=== PATIENT | female | born 1990 | race Caucasian/White ===

== ENCOUNTER 2024-05-11 11:41 | Emergency (ER) | payer MEDICAID, SELFPAY ==
[2024-05-11 11:42] VITALS: BP 144/98; PULSE 96; RESP 19; TEMP 36.7; O2SAT 96; BMI 30.2
[2024-05-11 11:45] VITALS: PULSE 98; RESP 18; O2SAT 99
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
--- NOTE | 2024-05-11 12:14 | PC.NURSE ---
pt requesting to leave AMA because she needs to hot die picker prescription of methadone. provider made aware. AMA form signed.
== END 2024-05-11 12:21 | disposition left against medical advice (07) ==
PROVIDERS: Emergency Provider Emergency Medicine
DX: S01.01XA Laceration without foreign body of scalp, initial encounter (principal); F11.20 Opioid dependence, uncomplicated; Z87.891 Personal history of nicotine dependence; Z53.29 Procedure and treatment not carried out because of patient's decision for other reasons; Y00.XXXA Assault by blunt object, initial encounter
CPT/HCPCS: 99281

== ENCOUNTER 2024-05-11 16:32 | Emergency (ER) | payer MEDICAID, SELFPAY ==
[2024-05-11 16:35] VITALS: BMI 28.7
[2024-05-11 16:54] VITALS: BP 133/84; PULSE 75; RESP 16; TEMP 36.7; O2SAT 95; BMI 30.8
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
[2024-05-11 19:21] VITALS: BP 107/83; PULSE 71; RESP 18; TEMP 36.7; O2SAT 99
== END 2024-05-11 19:23 | disposition home or self-care (01) ==
PROVIDERS: Emergency Provider Emergency Medicine; PCP Family Medicine
DX: S01.01XA Laceration without foreign body of scalp, initial encounter (principal); M54.2 Cervicalgia; Z87.891 Personal history of nicotine dependence; Y00.XXXA Assault by blunt object, initial encounter
CPT/HCPCS: 12002; 70450; 72125; 99284

== ENCOUNTER 2024-06-14 07:13 | Emergency (ER) | payer MEDICAID, SELFPAY ==
[2024-06-14 07:14] VITALS: BMI 29.8
[2024-06-14 07:31] VITALS: BP 155/100; PULSE 82; RESP 18; TEMP 36.7; O2SAT 97
[2024-06-14 07:54] LABS: Collection Type, Urine Clean Catch; RBC,Urine 0 /hpf (0-3)
[2024-06-14 08:20] LABS: HCG Qualitative,Urine Positive
--- NOTE | 2024-06-14 08:25 | EDNOTE_ITS ---
<Statement entered by Sachi Pena MD - 06/14/24 17:54> As co-signing physician, I was present and available for consult prn. I concur with the plan and care as documented by the midlevel provider. ED Abdominal Pain RME/HPI General Chief Complaint: Abdominal Pain Stated complaint: LOWER ABD CRAMPING, MISSED PERIOD X2MO Time seen by provider: 06/14/24 07:20 Arrival date/time: 06/14/24 07:13 34-year-old female presents emergency department today stating that she missed her period 2 months ago patient reports pelvic cramping. Patient with symptoms of for the last couple of weeks Limitations: no limitations Related Data Previous Rx's ?Medication ?Instructions ?Recorded ibuprofen 600 mg tablet 600 mg PO Q8H #14 tabs 12/23 etodolac 400 mg tablet 400 mg PO BID PRN pain #30 t abs 02/10/21 sulfamethoxazole 800 1 tab PO BID #14 tabs mg-trimethoprim 160 mg tablet (Bactrim DS) Allergies Allergy/AdvReac Type Severity Reaction Status Date / Time Penicillins Allergy Unknown Verified 06/14/24 07:16 tramadol Allergy Unknown Verified 06/14/24 07:16 Review of Systems Review of Systems Systems Reviewed: All systems reviewed, normal except as documented Constitutional Constitutional: Reports system reviewed and no additional complaints, except as documented, Denies fever(s) and Denies headache(s) Eyes Eyes: Reports system reviewed and no additional complaints, except as documented and Denies blurry vision ENT Ears, Nose, Mouth, and Throat: Reports system reviewed and no additional complaints, except as documented, Denies headache(s), Denies nasal congestion and Denies nasal discharge Cardiovascular Cardiovascular: Reports system reviewed and no additional complaints, except as documented, Denies chest pain and Denies dyspnea Respiratory Respiratory: Reports system reviewed and no additional complaints, except as documented, Denies chest congestion, Denies cough and Denies dyspnea Gastrointestinal Gastrointestinal: Reports system reviewed and no additional complaints, except as documented and Denies abdominal pain Genitourinary Genitourinary: Reports system reviewed and no additional complaints, except as documented, Denies abnormal vaginal bleeding, Denies flank pain and Reports pelvic pain Integumentary/Breasts Skin/Breast: Reports system reviewed and no additional complaints, except as documented and Denies rash Neurologic Neurologic: Reports system reviewed and no additional complaints, except as documented, Reports as per HPI and Denies headache(s) Past Medical History Past Medical History CARDIAC: Negative Congestive Heart Failure RESPIRATORY: Negative Chronic Obstructive Pulmonary Disease (COPD) GASTROINTESTINAL: Positive Hepatitis GENITOURINARY: Negative Renal Disease ENDOCRINE: Negative Diabetes Mellitus Type 1 or Diabetes Mellitus Type 2 Social History SMOKING STATUS: Current every day smoker ED Exam General Limitations: Present no limitations General appearance: Present alert and in no apparent distress Head Head exam: Present atraumatic, normocephalic and normal inspection Eye Eye exam: Present normal appearance, PERRL and EOMI; Absent conjunctival injection ENT ENT exam: Present normal exam, normal oropharynx and mucous membranes moist Neck Neck exam: Present normal inspection, full ROM and trachea midline Chest Chest inspection: Present normal inspection and symmetric chest wall rise Respiratory Respiratory exam: Present normal lung sounds bilaterally; Absent respiratory distress Cardiovascular Cardiovascular exam: Present regular rate, normal rhythm and normal heart sounds Abdominal Exam Abdominal exam: Present soft and normal bowel sounds; Absent distention, tenderness, guarding, rebound, rigidity, Sena's sign or tenderness at McBurney's Point Abdominal tenderness: Absent RUQ or RLQ Extremities Exam Extremities exam: Present normal inspection and full ROM Back Exam Back exam: Present normal inspection and full ROM Neurological Exam Neurological exam: Present alert, oriented X3 and CN II-XII intact Psychiatric Psychiatric exam: Present normal affect and normal mood Skin Skin exam: Present warm, dry, intact and normal color Course Quality Measures none Orders Category Date Time Status US pelvic complete Stat Exams 06/14/24 07:29 Stop Req Drug Screen,Urine Stat Lab 06/14/24 07:42 Completed HCG Qualitative,Urine Stat Lab 06/14/24 07:42 Results UA, C/S IF [Urinalysis, C/S if Indicated] Stat Lab 06/14/24 07:42 Results Vital Signs Vital signs: Vital Signs Temperature 98.1 F 06/14/24 07:31 Pulse Rate 82 06/14/24 07:31 Respiratory Rate 18 06/14/24 07:31 Blood Pressure 155/100 H 06/14/24 07:31 Pulse Oximetry (%) 97 06/14/24 07:31 Oxygen Delivery Method Room Air 06/14/24 07:31 O2 saturation 97% room air within the limits Abdominal Pain MDM MDM Narrative MDM Narrative:: 34-year-old female presents emergency department today stating that she missed her period 2 months ago patient reports pelvic cramping. Patient with symptoms of for the last couple of weeks On exam patient well-appearing patient is not appear ill or toxic in no acute distress Initially lab work as well as ultrasound ordered patient declined lab work as well as ultrasound she reports she just wants a test test did come back positive I did offer to do the lab work and ultrasound once again patient declined states she will follow-up with her primary care doctor As patient is no active bleeding or pain patient be discharged home to follow-up with PCP for worsening symptoms return immediately Patient data External records reviewed:: [facility] previous records Clinical information provided by:: patient Social determinants that could affect healthcare access:: housing Patient has the following chronic illnesses:: N/A How is presenting disease/condition affected by chronic disease/condition?: no chronic disease Evaluation data The following diagnostics were reviewed and interpreted by me:: lab results Lab and/or radiology exams considered but not ordered:: Lab obtain Interpretation Summary: Reviewed by me Medications / Prescriptions Medications or Prescriptions considered but not ordered:: Given no meds Medication administrations:: No meds Consultations Consultation(s) initiated? (list below): No Diagnosis Differential diagnosis abdominal pain: calculus of kidney and other (Positive ) Most likely diagnosis given after review of the tests above:: Positive Admission Indicated Admission indicated?: not indicated Admission Request Was there a request for admission?: No Disposition Plan Disposition Plan: Discharge Discharge Attestation Discharge Attestation: The patient and all family members were given an opportunity to ask questions and understood the discharge instructions. Discharge instructions specifically effects, indications for sooner follow up or return to the emergency department, and the expected course of current diagnosis. Patient condition: Stable Discharge Plan Plan Patient Disposition: HOME (Self Care) Disposition Comment: Stable Prescriptions/Referrals Prescriptions/Med Rec: No Action ibuprofen 600 mg tablet 600 mg PO Q8H Qty: 14 0RF etodolac 400 mg tablet 400 mg PO BID PRN (Reason: pain) Qty: 30 0RF sulfamethoxazole-trimethoprim [Bactrim DS] 800-160 mg tablet 1 tab PO BID Qty: 14 0RF Referrals: William Apple MD [Primary Care Provider] - In 1 week Problem List Clinical Impression: Positive test Patient/Caregiver Discharge Instructions Additional Instructions: Today you tested positive please follow-up with PCP for further evaluation and treatment Print Language: Kyrgyz Stand Alone Forms: Ruthie Award Info., Patient Portal Info Letter PA/REGIONAL SALES ASSOCIATE Supervising Physician PA/REGIONAL SALES ASSOCIATE Supervising Physician: Dr. pena
[2024-06-14 08:29] LABS: Amphetamine/Methamp Scrn,U Negative (Negative); Barbiturate Screen,Urine Negative (Negative); Benzodiazepines Screen,Urine Negative (Negative); Benzoylecgonine Screen, Ur Negative (Negative); Fentanyl Screen,Urine Negative (Negative); Opiate Screen,Urine Negative (Negative); THC Screen,Urine Negative (Negative)
[2024-06-14 08:35] LABS: Amorphous Crystals,Urine Present (Absent); Bilirubin,Urine Negative (Negative); Blood,Urine Negative (Negative); Color,Urine Yellow (Lt Yel-Yel); Culture Indicated,Urine Not Indicated; Glucose, Urine Negative (Negative); Ketones,Urine Negative (Negative); Leukocyte Esterase,Urine Negative (Negative); Nitrite,Urine Negative (Negative); PH,Urine 7.5 (5.0-7.0); Protein,Urine Negative (Neg - Trace); Specific Gravity,Urine 1.018 (1.001-1.035); Squamous Epithelial Cell,Urine 9 /hpf (0-5); Urobilinogen,Urine Negative mg/dL (0.0-1.0); WBC,Urine 1 /hpf (0-5)
[2024-06-14 08:39] LABS: Clarity,Urine Turbid (Clear/Hazy)
== END 2024-06-14 08:38 | disposition home or self-care (01) ==
PROVIDERS: Nurse Practitioner Primary Care; Emergency Provider Emergency Medicine; PCP Family Medicine
DX: Z32.01 Encounter for pregnancy test, result positive (principal)
CPT/HCPCS: 80053; 80307; 81001; 81025; 83690; 85025; 99283

== ENCOUNTER 2024-08-13 09:43 | Emergency (ER) | payer MEDICAID, SELFPAY ==
[2024-08-13 09:44] VITALS: BMI 29.8
[2024-08-13 09:58] VITALS: BP 123/83; PULSE 76; RESP 16; TEMP 36.8; O2SAT 96
--- NOTE | 2024-08-13 10:05 | PD.EDUPEX ---
Upper Extremity Injury RME/HPI General Chief Complaint: Extremity Injury, Upper Stated Complaint: RIGHT UNDERARM BLISTER, PAINFUL Time Seen by Provider: 08/13/24 09:46 Arrival date/time: 08/13/24 09:43 34-year-old female presents to the emergency department today for complaints of right underarm blister patient reports painful. Limitations: no limitations Related Data Previous Rx's ?Medication ?Instructions ?Recorded ibuprofen 600 mg tablet 600 mg PO Q8H #14 tabs 12/23/18 etodolac 400 mg tablet 400 mg PO BID PRN pain #30 tabs 02/10/21 sulfamethoxazole 800 1 tab PO BID #14 tabs 07/15/22 mg-trimethoprim 160 mg tablet (Bactrim DS) clindamycin HCl 300 mg capsule 300 mg PO TID 7 days #21 caps 08/13/24 ibuprofen 800 mg tablet 800 mg PO TID PRN pain #30 tabs 08/13/24 Allergies Allergy/AdvReac Type Severity Reaction Status Date / Time Penicillins Allergy Unknown Verified 08/13/24 09:46 tramadol Allergy Unknown Verified 08/13/24 09:46 Review of Systems Review of Systems Systems Reviewed: All systems reviewed, normal except as documented Constitutional Constitutional: Reports system reviewed and no additional complaints, except as documented, Denies fever(s) and Denies headache(s) Eyes Eyes: Reports system reviewed and no additional complaints, except as documented and Denies blurry vision ENT Ears, Nose, Mouth, and Throat: Reports system reviewed and no additional complaints, except as documented, Denies headache(s), Denies nasal congestion and Denies nasal discharge Cardiovascular Cardiovascular: Reports system reviewed and no additional complaints, except as documented, Denies chest pain and Denies dyspnea Respiratory Respiratory: Reports system reviewed and no additional complaints, except as documented, Denies chest congestion, Denies cough and Denies dyspnea Gastrointestinal Gastrointestinal: Reports system reviewed and no additional complaints, except as documented and Denies abdominal pain Integumentary/Breasts Skin/Breast: Reports system reviewed and no additional complaints, except as documented, Denies rash and Reports other (Early abscess right axilla) Neurologic Neurologic: Reports system reviewed and no additional complaints, except as documented, Reports as per HPI and Denies headache(s) Past Medical History Past Medical History CARDIAC: Negative Congestive Heart Failure RESPIRATORY: Negative Chronic Obstructive Pulmonary Disease (COPD) GASTROINTESTINAL: Positive Hepatitis GENITOURINARY: Negative Renal Disease ENDOCRINE: Negative Diabetes Mellitus Type 1 or Diabetes Mellitus Type 2 Social History SMOKING STATUS: Current every day smoker ED Exam General Limitations: Present no limitations General appearance: Present alert and in no apparent distress Head Head exam: Present atraumatic Eye Eye exam: Present normal appearance, PERRL and EOMI ENT ENT exam: Present normal exam, normal oropharynx and mucous membranes moist Neck Neck exam: Present normal inspection, full ROM and trachea midline Chest Chest inspection: Present normal inspection and symmetric chest wall rise Respiratory Respiratory exam: Present normal lung sounds bilaterally Cardiovascular Cardiovascular exam: Present regular rate, normal rhythm and normal heart sounds Abdominal Exam Abdominal exam: Present soft and normal bowel sounds Extremities Exam Extremities exam: Present normal inspection and full ROM Back Exam Back exam: Present normal inspection and full ROM Neurological Exam Neurological exam: Present alert, oriented X3, CN II-XII intact, normal gait and reflexes normal; Absent motor sensory deficit Psychiatric Psychiatric exam: Present normal affect and normal mood Skin Skin exam: Present warm, dry and other (Abscess right axilla) Course Quality Measures none Orders Category Date Time Status Clindamycin Vial [Cleocin vial] Med 08/13/24 10:02 Discontinued 600 mg IM X1 ONE Ketorolac Inj [Toradol Inj] Med 08/13/24 10:02 Discontinued 30 mg IM X1 ONE Vital Signs Vital signs: Vital Signs Temperature 98.3 F 08/13/24 09:58 Pulse Rate 76 08/13/24 09:58 Respiratory Rate 16 08/13/24 09:58 Blood Pressure 123/83 08/13/24 09:58 Pulse Oximetry (%) 96 08/13/24 09:58 Oxygen Delivery Method Room Air 08/13/24 09:58 O2 saturation 96% room air within normal limits Extremity Injury MDM Narrative MDM Narrative:: 34-year-old female presents to the emergency department today for complaints of right underarm blister patient reports painful. On exam patient well-appearing patient does not appear toxic in no acute distress Patient reports no fever nausea vomiting On exam patient has what appears to be early abscess of the right axilla patient mature with antibiotics at this time I do not feel a discrete pocket to drain. Explained to the patient she should return in 2 days for reevaluation and possible I&D patient states understanding Patient data External records reviewed:: [facility] previous records Clinical information provided by:: patient Social determinants that could affect healthcare access:: none Patient has the following chronic illnesses:: None How is presenting disease/condition affected by chronic disease/condition?: no chronic disease Evaluation data The following diagnostics were reviewed and interpreted by me:: other (specify) (N/A) Lab and/or radiology exams considered but not ordered:: Considered not ordered Interpretation Summary: na Medications / Prescriptions Medications or Prescriptions considered but not ordered:: given Medication administrations:: Medication Administration History Discontinued Medications Clindamycin Phosphate (Clindamycin Phos Inj 150 Mg/Ml Vial 6 Ml) 600 mg IM X1 ONE Stop: 08/13/24 10:03 Last Admin: 08/13/24 10:17 Dose: 600 mg Documented By: OA Ketorolac Tromethamine (Ketorolac Inj 30 Mg/Ml Vial) 30 mg IM X1 ONE Stop: 08/13/24 10:03 Last Admin: 08/13/24 10:17 Dose: 30 mg Documented By: OA Given Consultations Consultation(s) initiated? (list below): No Diagnosis Upper Extremity Injury Differential Diagnosis: other (Abscess, cellulitis) Most likely diagnosis given after review of the tests above:: Abscess Admission Indicated Admission indicated?: not indicated Admission Request Was there a request for admission?: No Disposition Plan Disposition Plan: Discharge Discharge Attestation Discharge Attestation: The patient and all family members were given an opportunity to ask questions and understood the discharge instructions. Discharge instructions specifically effects, indications for sooner follow up or return to the emergency department, and the expected course of current diagnosis. Patient condition: Stable Discharge Plan Plan Patient Disposition: HOME (Self Care) Discharge Disposition comment: Stable Prescriptions/Referrals Prescriptions/Med Rec: New clindamycin HCl 300 mg capsule 300 mg PO TID 7 Days Qty: 21 0RF ibuprofen 800 mg tablet 800 mg PO TID PRN (Reason: pain) Qty: 30 0RF No Action ibuprofen 600 mg tablet 600 mg PO Q8H Qty: 14 0RF etodolac 400 mg tablet 400 mg PO BID PRN (Reason: pain) Qty: 30 0RF sulfamethoxazole-trimethoprim [Bactrim DS] 800-160 mg tablet 1 tab PO BID Qty: 14 0RF Problem List Clinical Impression: Abscess of axilla, right Patient/Caregiver Discharge Instructions Education Materials: ED Abscess Antibiotic ... Additional Instructions: Please follow up with your primary care doctor in the next 24-48hrs for any worsening symptoms return here immediately If symptoms persist or worsen you will have to return for I&D Print Language: Yi Stand Alone Forms: Ruthie Award Info., Patient Portal Info Letter PA/CABINETMAKER SUPERVISOR Supervising Physician PA/CABINETMAKER SUPERVISOR Supervising Physician: Dr TOMAS
[2024-08-13] MEDS: KETOROLAC INJ 30 MG/ML VIAL IM (10:17)
[2024-08-13] MEDS: CLINDAMYCIN PHOS INJ 150 MG/ML VIAL 6 ML 600 MG IM (10:17)
== END 2024-08-13 11:11 | disposition home or self-care (01) ==
LOC: SERX 10:20
PROVIDERS: Emergency Provider Emergency Medicine; PCP Family Medicine
DX: L02.411 Cutaneous abscess of right axilla (principal)
CPT/HCPCS: 96372; 99283; J0736; J1885

== ENCOUNTER 2024-10-07 10:59 | Emergency (ER) | payer MEDICAID, SELFPAY ==
[2024-10-07 11:11] VITALS: BP 145/95; PULSE 73; RESP 17; TEMP 36.7; O2SAT 97; BMI 29.0
--- NOTE | 2024-10-07 11:39 | EDNOTE_ITS ---
ED Fall Injury RME/HPI General Chief Complaint: Fall Stated Complaint: Fell off a roof this morning Time Seen by Provider: 10/07/24 11:43 Source: patient Arrival date/time: 10/07/24 10:59 Mode of arrival: ambulatory Limitations: no limitations RME / HPI RME / HPI Narrative: 34-year-old female presents to the ED with a complaint of low back pain status post jumping off a two-story building attempting to retrieve a friend's cell phone. Patient missed judged at the height of the building. Denies numbness or tingling to her lower extremities. MD complaint: other (Jumped) Severity: severe Severity scale (1-10): 7 Related Data Previous Rx's ?Medication ?Instructions ?Recorded ibuprofen 600 mg tablet 600 mg PO Q8H #14 tabs 12/23 etodolac 400 mg tablet 400 mg PO BID PRN pain #30 t abs 02/10/21 sulfamethoxazole 800 1 tab PO BID #14 tabs mg-trimethoprim 160 mg tablet (Bactrim DS) ibuprofen 800 mg tablet 800 mg PO TID PRN pain #30 t abs 08/13/24 Allergies Allergy/AdvReac Type Severity Reaction Status Date / Time Penicillins Allergy Unknown Verified 10/07/24 11:03 tramadol Allergy Unknown Verified 10/07/24 11:03 Review of Systems Constitutional Constitutional: Reports system reviewed and no additional complaints, except as documented Eyes Eyes: Reports system reviewed and no additional complaints, except as documented, Denies dry eyes, Denies exophthalmos and Reports floaters Cardiovascular Cardiovascular: Denies chest pain with activity and Denies claudication ED Exam General Limitations: Present no limitations General appearance: Present alert and in no apparent distress Head Head exam: Present atraumatic Eye Eye exam: Present normal appearance, PERRL and EOMI ENT ENT exam: Present normal exam, normal oropharynx and mucous membranes moist Neck Neck exam: Present normal inspection, full ROM and trachea midline Chest Chest inspection: Present normal inspection and symmetric chest wall rise Respiratory Respiratory exam: Present normal lung sounds bilaterally Cardiovascular Cardiovascular exam: Present regular rate, normal rhythm and normal heart sounds Abdominal Exam Abdominal exam: Present soft and normal bowel sounds Extremities Exam Extremities exam: Present normal inspection and full ROM Back Exam Back exam: Present normal inspection and full ROM Neurological Exam Neurological exam: Present alert, oriented X3 and CN II-XII intact Psychiatric Psychiatric exam: Present normal affect and normal mood Skin Skin exam: Present warm, dry, intact and normal color Course Course Course Narrative: Patient will have a lumbar x-ray. And 30 mg of Toradol IM. Quality Measures none Orders Category Date Time Status CT lumbar spine wo con Stat Exams 10/07/24 16:13 Ordered XR lumbar spine 2-3V Stat Exams 10/07/24 11:43 Completed HCG Qualitative,Urine Stat Lab 10/07/24 13:57 Completed Ketorolac Inj [Toradol Inj] Med 10/07/24 11:43 Discontinued 30 mg IM X1 ONE NA Vital Signs Vital signs: Vital Signs Temperature 98.1 F 10/07/24 11:11 Pulse Rate 73 10/07/24 11:11 Respiratory Rate 17 10/07/24 11:11 Blood Pressure 145/95 H 10/07/24 11:11 Pulse Oximetry (%) 97 10/07/24 11:11 Oxygen Delivery Method Room Air 10/07/24 11:11 Pulse ox is 97% room air Fall Patient data External records reviewed:: Other (specify) (NA) Clinical information provided by:: none (NA) Social determinants that could affect healthcare access:: none (NA) Patient has the following chronic illnesses:: NA How is presenting disease/condition affected by chronic disease/condition?: no chronic disease (NA) Evaluation data The following diagnostics were reviewed and interpreted by me:: other (specify) (NA) Lab and/or radiology exams considered but not ordered:: NA Interpretation Summary: NA Medications / Prescriptions Medications or Prescriptions considered but not ordered:: NA Medication administrations:: Medication Administration History Discontinued Medications Ketorolac Tromethamine (Ketorolac Inj 60 Mg/2 Ml Vial) 30 mg IM X1 ONE Stop: 10/07/24 11:44 Last Admin: 10/07/24 13:51 Dose: 30 mg Documented By: BRITTANIE BUSTOS Consultations Consultation(s) initiated? (list below): No Diagnosis Fall Differential Diagnosis: dislocation of shoulder region, fracture of wrist, compression fracture and concussion with loss of consciousness Most likely diagnosis given after review of the tests above:: NA Admission Indicated Admission indicated?: not indicated Explain why admission is indicated or not indicated:: NA Admission Request Was there a request for admission?: No Disposition Plan Disposition Plan: Discharge Discharge Attestation Discharge Attestation: The patient and all family members were given an opportunity to ask questions and understood the discharge instructions. Discharge instructions specifically effects, indications for sooner follow up or return to the emergency department, and the expected course of current diagnosis. Patient condition: Stable Discharge Plan Plan Patient Disposition: Elopement Patient condition on transfer: Stable Prescriptions/Referrals Prescriptions/Med Rec: No Action ibuprofen 600 mg tablet 600 mg PO Q8H Qty: 14 0RF etodolac 400 mg tablet 400 mg PO BID PRN (Reason: pain) Qty: 30 0RF sulfamethoxazole-trimethoprim [Bactrim DS] 800-160 mg tablet 1 tab PO BID Qty: 14 0RF ibuprofen 800 mg tablet 800 mg PO TID PRN (Reason: pain) Qty: 30 0RF Referrals: No Primary/Family,Physician [Primary Care Provider] - In 1 week Problem List Clinical Impression: L3 vertebral fracture Patient/Caregiver Discharge Instructions Print Language: Sinhala PA/ASSOCIATE QUALITY ENGINEER Supervising Physician PA/ASSOCIATE QUALITY ENGINEER Supervising Physician: DISHA
--- NOTE | 2024-10-07 11:43 | XR_ITS ---
Examination: Lumbar spine 3 views Technique one AP lateral coned lateral lower lumbar spine 3 views Date and time: October 07, 2024, 1338 hours INDICATIONS: Onset lower back pain today. FINDINGS: Lumbar levoscoliosis 10 degrees Fracture of the L3 vertebral body, depression of the superior endplate and displaced 10 mm fracture fragment No dislocation IMPRESSION: Recommend CT scan lumbar spine without contrast follow-up to assess acute appearing fracture L3 vertebral body
[2024-10-07] MEDS: KETOROLAC INJ 60 MG/2 ML VIAL 30 MG IM (13:51)
[2024-10-07 14:21] LABS: HCG Qualitative,Urine Negative
--- NOTE | 2024-10-07 16:45 | PC.NURSE ---
PT WAS CALLED IN LOBBY AND OUTSIDE; NO RESPONSE AT THIS TIME
--- NOTE | 2024-10-07 19:30 | PC.NURSE ---
CALLED PATIENTS NAME NO ANSWER
--- NOTE | 2024-10-07 19:35 | PC.NURSE ---
CALLED PATIENTS NAME NO ANSWER
--- NOTE | 2024-10-07 19:39 | PC.NURSE ---
called patients name no answer
--- NOTE | 2024-10-07 20:12 | PD.EDADDENDU ---
Emergency Room Addendum Addendum Narrative: Patient eloped and XR showed possible L3 fx. Patient was contacted, but her friend, picked up. Friend said she would relay the results to patient.
--- NOTE | 2024-10-08 09:15 | PC.NURSE ---
called pt. at [phone] and left a voicemail for pt. to call me back or return to ER. Pt. did not answer.
== END 2024-10-07 19:42 | disposition left against medical advice (07) ==
PROVIDERS: Emergency Provider Physician Assistant
DX: S32.039A Unspecified fracture of third lumbar vertebra, initial encounter for closed fracture (principal); W13.2XXA Fall from, out of or through roof, initial encounter; Z53.29 Procedure and treatment not carried out because of patient's decision for other reasons
CPT/HCPCS: 72100; 81025; 96372; 99283; J1885

== ENCOUNTER 2024-10-09 04:09 | Emergency (ER) | payer MEDICAID, SELFPAY ==
[2024-10-09 04:11] VITALS: BMI 29.0
[2024-10-09 04:16] VITALS: BP 135/88; PULSE 84; RESP 16; TEMP 36.8; O2SAT 99
--- NOTE | 2024-10-09 04:20 | XR_ITS ---
Examination: CT lumbar spine, without contrast. 2-D sagittal reconstructions. 2-D coronal reconstructions. 3-D reconstructions. Date and time of exam:2024, 3 hours INDICATIONS: Patient fell off a roof yesterday with injury to lower back, lower back pain CTDI: vol (mGy):85 DLP: (mGycm):904 Technique: Multiple 1.25 mm axial sections of the lumbar spine without intravenous contrast have been obtained. 2-D sagittal and coronal reconstructions have been obtained. 3-D reconstructions have been obtained. Low dose protocols were performed. One or more of the following dose reduction techniques were used; automated exposure control, adjustment of the mA and/or KV according to patient size, use of iterative reconstruction technique. Findings: Acute fracture L3 vertebral body, depression superior endplate reduction of height approximately 30% Fracture includes mildly displaced 8mm fracture fragment off the anterior superior margin of this vertebral body The fracture does extend into the right pedicle of L3 axial image 109 The fracture may involve the left inferior articular facet of L3 sagittal images 38 L4-L5 5 mm central left paracentral disc bulge IMPRESSION: Acute fracture L3 vertebral body, depression superior endplate reduction in height approximately 30% Fracture involves the right pedicle of L3 and may involve the left inferior articular facet of L3
--- NOTE | 2024-10-09 04:26 | PD.EDRECHK ---
ED Recheck Abnl Lab Rx-RME/HPI General Chief Complaint: General Adult/Misc Complain Stated Complaint: TOLD TO COMEBACK ABOUT RESULTS Time Seen by Provider: 10/09/24 04:55 Arrival date/time: 10/09/24 04:09 RME / HPI RME / HPI narrative: DR. HERBERT MAIN ED EVALUATION: 34 y/o female presents to ED for radiology results from her ED visit on 10/07/2024. Patient left prior to official radiology report being finalized x 1 day ago. Patient was seen for low back pain s/p jumping off a two-story building attempting to retrieve a friend's cell phone. No other concerns or complaints expressed at this time. Related Data Previous Rx's ?Medication ?Instructions ?Recorded ibuprofen 600 mg tablet 600 mg PO Q8H #14 tabs 12/23/18 etodolac 400 mg tablet 400 mg PO BID PRN pain #30 tabs 02/10/21 sulfamethoxazole 800 1 tab PO BID #14 tabs 07/15/22 mg-trimethoprim 160 mg tablet (Bactrim DS) ibuprofen 800 mg tablet 800 mg PO TID PRN pain #30 tabs 08/13/24 Allergies Allergy/AdvReac Type Severity Reaction Status Date / Time Penicillins Allergy Unknown Verified 10/09/24 04:11 tramadol Allergy Unknown Verified 10/09/24 04:11 Review of Systems Review of Systems Systems Reviewed: All systems reviewed, normal except as documented Past Medical History Past Medical History GASTROINTESTINAL: Positive Hepatitis Social History SMOKING STATUS: Current every day smoker ED Exam Narrative Physical exam: Generally patient is alert in no obvious distress neurologic exam shows the patient be completely neurologically intact. Heart regular rate and rhythm lungs clear to auscultation equal bilaterally abdomen soft bowel sounds present nondistended nontender musculoskeletal exam shows the patient have no wounds to her back no step-offs or deformities patient is tender over the L3 vertebra with midline palpation Course Quality Measures none Orders Category Date Time Status CT lumbar spine wo con Stat Exams 10/09/24 04:20 Taken Vital Signs Vital signs: Vital Signs Temperature 98.3 F 10/09/24 04:16 Pulse Rate 84 10/09/24 04:16 Respiratory Rate 16 10/09/24 04:16 Blood Pressure 135/88 H 10/09/24 04:16 Pulse Oximetry (%) 99 10/09/24 04:16 Oxygen Delivery Method Aerosol Mask 10/09/24 04:16 Recheck / Abnormal Lab / Rx MDM Narrative [facility] Narrative:: Scribe Attestation: I, Ira Robledo, am scribing for and in the presence of Dr. Herbert. Provider Notation: Although this document has been carefully reviewed, there may still be some phonetic and other typographical errors.? These errors are purely grammatical due to imperfections in the software program and should not be construed in any way to? compromise the substance of the patient's medical care during this visit. CT scan done the lumbar sacral spine without contrast showed an L3 compression fracture. This was not a burst fracture. There is approximately 30% loss of vertebral height. No retropulsion of fracture fragment. Patient is stable for discharge. Pain is controlled. Patient data External records reviewed:: [facility] previous records (Reviewed prior ED records from 10/07/24. Patient was seen for L3 vertebral fracture.) Clinical information provided by:: patient Social determinants that could affect healthcare access:: none Patient has the following chronic illnesses:: Hepatitis How is presenting disease/condition affected by chronic disease/condition?: uneffected by Evaluation data The following diagnostics were reviewed and interpreted by me:: radiology exam(s) Lab and/or radiology exams considered but not ordered:: None Interpretation Summary: RADIOLOGY L-Spine CT: Pending official radiology report. Refer to MDM above. Medications / Prescriptions Medications or Prescriptions considered but not ordered:: None Medication administrations:: See above if any Consultations Consultation(s) initiated? (list below): No Diagnosis Recheck Differential Diagnosis: other (Dorsalgia, Degenerative disc disease of lumbar spine, Discitis, Fracture of L-spine) Most likely diagnosis given after review of the tests above:: L3 compression fracture Admission Indicated Admission indicated?: not indicated Explain why admission is indicated or not indicated:: Patient does not meet admission criteria. Admission Request Was there a request for admission?: No Disposition Plan Disposition Plan: Discharge Discharge Attestation Discharge Attestation: The patient and all family members were given an opportunity to ask questions and understood the discharge instructions. Discharge instructions specifically effects, indications for sooner follow up or return to the emergency department, and the expected course of current diagnosis. Patient condition: Stable Discharge Plan Plan Patient Disposition: HOME (Self Care) Prescriptions/Referrals Prescriptions/Med Rec: No Action ibuprofen 600 mg tablet 600 mg PO Q8H Qty: 14 0RF etodolac 400 mg tablet 400 mg PO BID PRN (Reason: pain) Qty: 30 0RF sulfamethoxazole-trimethoprim [Bactrim DS] 800-160 mg tablet 1 tab PO BID Qty: 14 0RF ibuprofen 800 mg tablet 800 mg PO TID PRN (Reason: pain) Qty: 30 0RF Problem List Clinical Impression: Closed compression fracture of L3 vertebra Patient/Caregiver Discharge Instructions Additional Instructions: You may use Tylenol and/or ibuprofen as needed for pain. Follow-up with your doctor as needed. Print Language: Burundian Stand Alone Forms: Ruthie Award Info., Patient Portal Info Letter
--- NOTE | 2024-10-09 05:13 | PRELIM_ITS ---
CT scan of the lumbar spine without intravenous contrast (axial sections with sagittal and coronal reformats) October 09, 2024 0442 hours Clinical History: L3 fracture. Comparison: None. Findings: Acute compression fracture of the vertebral body of L3 with about 30% decrease in vertebral height. No retropulsion of bone fragments. Acute fracture of the right pedicle of L3. Acute fracture of the left inferior facet of L3. Impression: Acute compression fracture of the vertebral body of L3 with about 30% decrease in vertebral height. Acute fracture of the right pedicle of L3. Acute fracture of the left inferior facet of L3. Discussion Details: Results verbally communicated to : Dr. Santana at 05:07 AM 10/09/2024 Report Electronically Signed By: Dago Flores 10/09/2024 5:13:12 AM [EST]
[2024-10-09 05:28] VITALS: PULSE 80; RESP 17; O2SAT 97
== END 2024-10-09 05:27 | disposition home or self-care (01) ==
LOC: SERX 05:14
PROVIDERS: Emergency Provider Emergency Medicine
DX: S32.039A Unspecified fracture of third lumbar vertebra, initial encounter for closed fracture (principal); W13.2XXA Fall from, out of or through roof, initial encounter
CPT/HCPCS: 72131; 99283